=== PATIENT | female | born 1975 | race Caucasian/White ===

== ENCOUNTER → 2018-08-07 06:54 | Outpatient (CLI) | payer OTHER, SELFPAY ==
--- NOTE | 2018-08-07 | DI.ECHO.S_ITS ---
[facility] +---------+ : : [address] : [place] : : : : [id number] : : : : Phone: [phone]+ Echocardiogram Report + + :Name: AIDA BAI Study Date: 08/07/2018 Height: 66 in : :[facility] Exam Location: [facility] Weight: 145 lb : : Gender: Female BSA: 1.7 m2 : :: 1975 Age: 42 yrs BP: 105/70 mmHg: :Reason For Study: History of heart murmur : :Ordering Physician: Dr. Jonathan Duval Performed By: Shireen Page : + + Interpretation Summary The ejection fraction is estimated to be 60-65%. There is no significant valvular heart disease. Procedure: A two-dimensional transthoracic echocardiogram with color flow and Doppler was performed. The study quality was technically adequate. There is no prior echocardiogram noted for this patient. The patient was in normal sinus rhythm during the exam. Left Ventricle: The left ventricle is normal in size, wall thickness, and systolic function without any focal wall motion abnormalities. The ejection fraction is estimated to be 60-65%. Left ventricular wall motion is normal. Diastolic parameters suggest probable normal left ventricular diastolic function and normal filling pressures. Right Ventricle: The right ventricle is normal in size and function. Atria: Both atria are normal in size. There is no Doppler evidence for an interatrial shunt. Mitral Valve: The mitral valve is normal in structure and function. There is trace mitral regurgitation. Aortic Valve: The aortic valve is trileaflet. The aortic valve opens well. No aortic regurgitation is present. Tricuspid Valve: The tricuspid valve is normal in structure and function. There is a trace or physiologic amount of tricuspid regurgitation. The right ventricular systolic pressure is estimated to be at least 13 mmHg based on an estimated right atrial pressure of 3 mm Hg. Pulmonic Valve: The pulmonic valve is not well seen, but is grossly normal. There is no pulmonic valvular regurgitation. Great Vessels: The aortic root is normal size. The ascending aorta could not be visualized. The aortic arch is normal in size. The pulmonary artery is normal size. The IVC is of normal diameter and collapses greater than 50% with a sniff. This suggests a low right atrial pressure of 3 mm Hg. Pericardium/ Pleura There is no pericardial effusion. There is no pleural effusion. MMode/2D Measurements & Calculations LVIDd: 4.3 cm LVOT diam: 1.8 cm LVIDs: 2.8 cm Ao root diam: 3.3 cm FS: 35.2 % Ao Arch Diam (Prox Trans): 2.7 cm EPSS: 0.43 cm IVSd: 0.60 cm LVPWd: 0.84 cm LV montoya. diameter/BSA (cm/m^2): 2.5 LV sys. diameter/BSA (cm/m^2): 1.6 LA A2 area: 17.0 cm2 RA long axis: 5.4 cm LA A4 area: 13.9 cm2 RA area: 12.3 cm2 LA length (vol): 5.2 cm RA vol: 23.9 ml LA vol: 38.6 ml RA : 13.7 ml/m2 LA vol index: 22.1 ml/m2 IVC diam: 2.0 cm RVD1 (basal): 2.9 cm TAPSE: 1.8 cm Doppler Measurements & Calculations Ao V2 max: 142.9 cm/sec LVOT Max Ben: 124.0 cm/sec Ao V2 mean: 109.2 cm/sec LV V1 max P.1 mmHg Ao max P.2 mmHg LV V1 VTI: 25.9 cm Ao mean P.0 mmHg BETSY(I,D): 2.2 cm2 Ao V2 VTI: 30.9 cm BETSY(V,D): 2.3 cm2 sev ratio: 0.84 BETSY indexed to BSA (cm^2/m^2): 1.3 MV E max ben: 72.1 cm/sec TR max ben: 159.3 cm/sec MV A max ben: 67.2 cm/sec TR max P.2 mmHg MV E/A: 1.1 PA V2 max: 82.9 cm/sec Med Peak E' Ben: 10.9 cm/sec PA V2 mean: 53.5 cm/sec E/E' med: 6.6 PA mean P.3 mmHg Lat Peak E' Ben: 13.9 cm/sec PA Accel Time: 0.13 sec E/E' lat: 5.2 E/e' average: 5.9 MV dec time: 0.21 sec MV P1/2t: 67.8 msec MV P1/2t max ben: 74.3 cm/sec SV(LVOT): 68.2 ml MVA(P1/2t): 3.2 cm2 Reading Physician:12:53 PM
== END ==
PROVIDERS: PCP Student in an Organized Health Care Education/Training Program; Visit Provider Obstetrics & Gynecology
DX: Z86.79 Personal history of other diseases of the circulatory system (principal)
CPT/HCPCS: 93306